=== PATIENT | male | born 1990 | race Caucasian/White ===

== ENCOUNTER 2023-12-11 23:49 | Emergency (ER) | payer SELFPAY ==
[2023-12-11 23:50] VITALS: BP 127/87; PULSE 94; RESP 20; TEMP 36.8; O2SAT 97; BMI 32.3
[2023-12-12 00:03] VITALS: BP 130/80; PULSE 94; RESP 24; TEMP 36.8; O2SAT 97
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
[2023-12-12 00:17] VITALS: BMI 32.3
[2023-12-12 00:17] LABS: Alanine Aminotransferase 106 U/L (12-78); Albumin/Globulin Ratio 1.6 (1.1-1.8); Alkaline Phosphatase 51 U/L (38-126); Anion Gap 18.4 mEq/L (5-15); Aspartate Amino Transferase 183 U/L (17-59); Bilirubin,Total 0.7 mg/dl (0.2-1.3); Blood Urea Nitrogen 11 mg/dl (9-20); Calcium 9.7 mg/dl (8.4-10.2); Carbon Dioxide 24 mmol/L (22.0-30.0); Chloride 102 mmol/L (98-107); Estimated Glomerular Filt Rate 64 ml/min (>60); GFR (African American) 77 ML/MIN (>60); Globulin 3.2 g/dL (1.3-3.2); Glucose 110 mg/dl (74-100); Potassium 3.4 mmoL/L (3.5-5.1); Sodium 141 mmol/L (136-145); Total Protein,Serum 8.2 g/dl (6.3-8.2)
[2023-12-12 00:19] LABS: Activated Partial Thrombo Time 27.4 seconds (22.8-30.6); INR 0.95 (0.9-1.1); Prothrombin Time 10.3 seconds (10.1-12.5)
[2023-12-12 00:20] LABS: Creatinine Clearance Estimated 104 mL/min (50-200)
[2023-12-12 00:29] LABS: Ethyl Alcohol 185 mg/dl (0-10)
--- NOTE | 2023-12-12 00:49 | PC.NURSE ---
patient back from CT
[2023-12-12] MEDS: ACETAMINOPHEN 1,000MG/100ML VIAL 1000 MG IV (00:51)
[2023-12-12] MEDS: 0.9 % SODIUM CHLORIDE 50 ML VIAL 100 ML IV (01:05)
[2023-12-12] MEDS: SODIUM CHLORIDE 0.9% 10ML SYR (RAD ONLY) 10 ML IV (01:05)
[2023-12-12] MEDS: IOPAMIDOL-370 (76%);100ML BOTTLE 200 ML IV (01:05)
--- NOTE | 2023-12-12 01:46 | PC.NURSE ---
randa on phone speaking with dr millard.
--- NOTE | 2023-12-12 01:50 | INFXCTL.NOTE ---
call placed to for transfer. md dr cottrell. accepted.
[2023-12-12 01:54] LABS: Microscopic, Urine URINE MICROSCOPIC (MICROSCOPIC)
[2023-12-12 01:59] LABS: Appearance,Urine CLEAR (Clear); Bilirubin,Urine Negative (Negative); Blood, Urine 3+ (Negative); Color,Urine YELLOW (Yellow); Glucose,Urine (UA) Negative (Negative); Ketones,Urine Negative (Negative); Leukocyte Esterase,Urine Negative (Negative); Nitrate,Urine Negative (Negative); PH,Urine 5.5 (5.0-8.5); Protein,Urine Negative (Negative); Specific Gravity, Urine <= 1.005 (1.005-1.030); Urobilinogen,Urine 0.2 EU/dl (0.2)
[2023-12-12 02:07] LABS: Basophils # 0.1 K/mm3 (0-0.2); Basophils % 0.5 % (0.1-2.0); Eosinophils # 0.1 K/mm3 (0.0-0.4); Eosinophils % 0.4 % (0.1-12.0); Lymphocytes # 1.3 K/mm3 (0.7-4.5); Lymphocytes % 10.4 % (10-50); Mean Corpuscular Hemoglobin 34.3 pg (27.0-31.2); Mean Corpuscular Volume 101.1 fl (80-94); Mean Platelet Volume 7.4 fl (7.4-10.4); Monocytes # 0.6 K/mm3 (0.1-1.0); Neutrophils # 10.4 K/mm3 (1.8-7.8); Neutrophils % 83.7 % (37.0-80.0); Platelet Count 358 K/mm3 (142-424); Red Blood Count 5.24 M/mm3 (4.60-6.20); Red Cell Distribution Width 13.5 % (11.5-17.5); White Blood Count 12.4 K/mm3 (4.8-10.8)
[2023-12-12 02:08] LABS: Barbiturates Screen,Urine Negative ng/ml (<200); Benzodiazepines Screen,Urine Negative ng/ml (<200)
[2023-12-12] MEDS: ONDANSETRON 4MG/2ML VIAL 4 MG IV (02:08)
[2023-12-12] MEDS: MORPHINE 4MG/ML SYRINGE 4 MG IV (02:08)
--- NOTE | 2023-12-12 02:08 | PC.NURSE ---
Nurse to nurse report given to Collette BLANK at ER.
[2023-12-12 02:09] LABS: Amphetamine/Metha Screen,Urine Negative ng/ml (<1000)
[2023-12-12 02:10] LABS: Cannabinoid Screen,Urine Positive ng/ml (<50); Cocaine Screen,Urine Negative ng/ml (<300)
[2023-12-12 02:11] LABS: Methadone Screen,Urine Negative ng/ml (<300); Opiate Screen,Urine Negative ng/ml (<300)
[2023-12-12 02:12] LABS: Phencyclidine Screen,Urine Negative ng/ml (<25)
--- NOTE | 2023-12-12 02:13 | PC.NURSE ---
ems at bedside. report given to Trey Ramos, emt-p from Jorge Velázquez and Cindi Cortez.
[2023-12-12 02:16] VITALS: BP 145/56; PULSE 96; RESP 14; TEMP 36.3; O2SAT 99
[2023-12-12 02:16] LABS: RBC,Urine 50-100 #/hpf (0-3); Squamous Epithelial Cell,Urine Occasional #/hpf (0-5)
--- NOTE | 2023-12-12 02:28 | PC.NURSE ---
disc given to izzy [email or web address]-[id number]
== END 2023-12-12 02:28 | disposition short-term general hospital (02) ==
PROVIDERS: Emergency Provider Emergency Medicine
DX: S06.5X0A Traumatic subdural hemorrhage without loss of consciousness, initial encounter (principal); I77.74 Dissection of vertebral artery; K68.3 Retroperitoneal hematoma; S12.500A Unspecified displaced fracture of sixth cervical vertebra, initial encounter for closed fracture; S12.100A Unspecified displaced fracture of second cervical vertebra, initial encounter for closed fracture; S02.2XXA Fracture of nasal bones, initial encounter for closed fracture; S22.41XA Multiple fractures of ribs, right side, initial encounter for closed fracture; F10.929 Alcohol use, unspecified with intoxication, unspecified; F17.210 Nicotine dependence, cigarettes, uncomplicated; V29.99XA Rider (driver) (passenger) of other motorcycle injured in unspecified traffic accident, initial encounter; Y90.6 Blood alcohol level of 120-199 mg/100 ml; Y92.410 Unspecified street and highway as the place of occurrence of the external cause
CPT/HCPCS: 70450; 70486; 70496; 70498; 71045; 71275; 72125; 72128; 72131; 72170; 72192; 73030; 73552; 74174; 80053; 80307; 80320; 81001; 85025; 85610; 85730; 96374; 96375; 99291; G0480; J0131; J2270; J2405; Q9967